=== PATIENT | female | born 1980 ===

== ENCOUNTER 2018-05-09 19:56 | Emergency (ER) | payer MEDICAID ==
[2018-05-09 20:48] LABS: URINE APPEARANCE CLEAR; URINE BILIRUBIN NEGATIVE (NEGATIVE); URINE BLOOD TRACE-I (NEGATIVE); URINE COLOR YELLOW; URINE GLUCOSE (UA) NEGATIVE (NEGATIVE); URINE KETONE NEGATIVE (NEGATIVE); URINE LEUKOCYTE ESTERASE NEGATIVE (NEGATIVE); URINE NITRITE NEGATIVE (NEGATIVE); URINE PROTEIN NEGATIVE (NEGATIVE); URINE UROBILINOGEN 0.2 E.U./dL (0.20 - 1.00)
[2018-05-09 20:57] LABS: URINE RBC 0 - 2 (NONE SEEN); URINE WBC NONE SEEN (0-2/hpf)
[2018-05-09] MEDS: 0.9 % SODIUM CHLORIDE 1,000 ML BAG IV ONE (21:25)
[2018-05-09 21:26] LABS: HCG,QUALITATIVE URINE NEGATIVE (NEGATIVE)
[2018-05-09 21:27] LABS: BASO % 0.1 % (0-6); EOS % 1.3 % (0-6); GRAN % 71.6 % (47-80); LYMPH % 22.4 % (16-45); MEAN CELL VOLUME 80.5 fl (81-97); MEAN CORPUSCULAR HEMOGLOBIN 26.8 pg (27-33); MEAN CORPUSCULAR HGB CONC 33.3 g/dl (32-36); MEAN PLATELET VOLUME 10.2 fl (7.4-10.4); MONO % 4.6 % (0-9); PLATELET COUNT 268 K/uL (130-400); RED BLOOD COUNT 4.47 M/uL (3.80-5.40); RED CELL DISTRIBUTION WIDTH 14.4 % (11.5-14.5); WHITE BLOOD COUNT W/O DIFF 8.7 K/uL (4.2-12.2)
[2018-05-09 21:36] LABS: BILIRUBIN,TOTAL < 0.20 mg/dL (0.2-1.0); BLOOD UREA NITROGEN 8 mg/dL (6-20); CREATININE 0.5 mg/dL (0.5-0.9); EST GLOMERULAR FILTRATION RATE > 60 mL/min
[2018-05-09 21:37] LABS: LIPASE 28 U/L (13-60); TOTAL PROTEIN 6.7 g/dL (6.6-8.7)
[2018-05-09 21:39] LABS: GLUCOSE,RANDOM 99 mg/dL (74-109)
[2018-05-09 21:41] LABS: ALT/SGPT 9 U/L (<33)
[2018-05-09 21:42] LABS: ALB/GLOB RATIO 1.4 (1.1-1.8); ALBUMIN 3.9 g/dL (4.0-5.0); ALKALINE PHOSPHATASE 88 U/L (35-104); AST/SGOT 10 U/L (10.0-35.0)
[2018-05-09] MEDS: ONDANSETRON HCL IV 4 MG/2 ML VIAL IVP ONE (22:15)
[2018-05-10] MEDS: KETOROLAC 30 MG/ML VIAL IVP ONE (00:01)
--- NOTE | 2018-05-10 00:17 | Emergency Department Record ---
History of Present Illness - General Chief Complaint: Abdominal Pain Stated Complaint: LT SIDE PAIN/NAUSEA Time Seen by Provider: 05/09/18 20:56 Source: Patient Mode of Arrival: Ambulatory Limitations: No limitations - History of Present Illness Initial Comments: pt c/o llq ap since yesterday w bloating and diarrhea and nausea MD Complaint: Abdominal pain Onset/Timin -: Days(s) Location: LUQ Radiation: Back, LLQ Severity scale (1-10): 6 Quality: Cramping Consistency: Constant Improves With: Nothing Worsens With: Nothing Associated Symptoms: Nausea - Related Data LMP (females 10-50): 3 weeks ago Patient : No Home Medications Medication Instructions Recorded Confirmed Last Taken No Home Med [NO HOME MEDS] 05/09/18 05/09/18 Unknown Allergies Allergy/AdvReac Type Severity Reaction Status Date / Time codeine Allergy HYPERSENSIT Verified 12/30/15 12:22 IVITY morphine Allergy HYPERSENSIT Verified 12/30/15 12:22 IVITY Penicillins Allergy RASH Verified 12/30/15 12:22 Travel Screening - Travel/Exposure Within Last 30 Days Have you traveled within the last 30 days?: No - Travel Symptoms Symptom Screening: None Review of Systems Reviewed: No additional complaints except as noted below Constitutional: Reports: As per HPI. Denies: Chills, Fever, Malaise, Night sweats, Weakness, Weight change Eyes: Reports: As per HPI. Denies: Eye discharge, Eye pain, Photophobia, Vision change ENT: Reports: As per HPI. Denies: Congestion, Dental pain, Ear pain, Epistaxis , Hearing loss, Throat pain Respiratory: Reports: As per HPI. Denies: Cough, Dyspnea, Hemoptysis, Stridor, Wheezes Cardiovascular: Reports: As per HPI. Denies: Arrhythmia, Chest pain, Dyspnea on exertion, Edema, Murmurs, Orthopnea, Palpitations, Paroxysmal nocturnal dyspnea, Rheumatic Fever, Syncope Endocrine: Reports: As per HPI. Denies: Fatigue, Heat or cold intolerance, Polydipsia, Polyuria Gastrointestinal: Reports: As per HPI, Nausea. Denies: Abdominal pain, Constipation, Diarrhea, Hematemesis, Hematochezia, Melena, Vomiting Genitourinary: Reports: As per HPI. Denies: Abnormal menses, Discharge, Dyspareunia, Dysuria, Frequency, Hematuria, Incontinence, Retention, Urgency Musculoskeletal: Reports: As per HPI. Denies: Arthralgia, Back pain, Gout, Joint swelling, Myalgia, Neck pain Skin: Reports: As per HPI. Denies: Bruising, Change in color, Change in hair/ nails, Lesions, Pruritus, Rash Neurological: Reports: As per HPI. Denies: Abnormal gait, Confusion, Headache, Numbness, Paresthesias, Seizure, Tingling, Tremors, Vertigo, Weakness Psychiatric: Reports: As per HPI. Denies: Anxiety, Auditory hallucinations, Depression, Homicidal thoughts, Suicidal thoughts, Visual hallucinations Hematological/Lymphatic: Reports: As per HPI. Denies: Anemia, Blood Clots, Easy bleeding, Easy bruising, Swollen glands Past Medical History - SOCIAL HISTORY Smoking Status: Current every day smoker - RESPIRATORY Hx Respiratory Disorders: No - CARDIOVASCULAR Hx Cardio Disorders: No - NEURO Hx Neuro Disorders: Yes Hx Dizziness: Yes - GI Hx GI Disorders: No - Hx Genitourinary Disorders: Yes Comment:: ovarian cyst - ENDOCRINE Hx Endocrine Disorders: No - MUSCULOSKELETAL Hx Musculoskeletal Disorders: No - PSYCH Hx Psych Problems: Yes Hx Anxiety: Yes - HEMATOLOGY/ONCOLOGY Hx Hematology/Oncology Disorders: Yes Hx Anemia: Yes Family Medical History Any Significant Family History?: Yes Hx Cancer: Grandparents Hx Diabetes: Brother/Sister, Grandparents Hx Heart Disease: Mother, Brother/Sister, Grandparents Physical Exam - General General Appearance: Alert, Oriented x3, Cooperative, Mild distress - Head Head exam: Normal inspection - Eye Eye exam: Normal appearance, PERRL, EOMI Pupils: Normal accommodation - ENT ENT exam: Normal exam, Mucous membranes moist, Normal external ear exam, Normal orophraynx Ear exam: Normal external inspection. negative: External canal tenderness Nasal Exam: Normal inspection. negative: Discharge, Sinus tenderness Mouth exam: Normal external inspection, Tongue normal Teeth exam: Normal inspection. negative: Dental caries Throat exam: Normal inspection. negative: Tonsillar erythema, Tonsillar exudate - Neck Neck exam: Normal inspection, Full ROM. negative: Tenderness - Respiratory Respiratory exam: Normal lung sounds bilaterally. negative: Respiratory distress - Cardiovascular Cardiovascular Exam: Regular rate, Normal rhythm, Normal heart sounds - GI/Abdominal GI/Abdominal exam: Soft, Normal bowel sounds, Tenderness - Rectal Rectal exam: Deferred - exam: Deferred - Extremities Extremities exam: Normal inspection, Full ROM, Normal capillary refill. negative: Tenderness - Back Back exam: Reports: Normal inspection, Full ROM. Denies: Muscle spasm, Rash noted, Tenderness - Neurological Neurological exam: Alert, CN II-XII intact, Normal gait, Oriented X3 - Psychiatric Psychiatric exam: Normal affect, Normal mood - Skin Skin exam: Dry, Intact, Normal color, Warm Course Vital Signs 05/09/18 05/09/18 05/10/18 20:40 22:33 00:06 Temperature 98.4 F Pulse Rate [ 74 67 62 Pulse Ox Probe] Respiratory 24 20 14 Rate Blood Pressure 115/65 102/66 115/80 [Left Arm] Pulse Ox 98 99 98 - Reevaluation(s) Reevaluation #1: 05/10/18 00:15 ct shows 2 ovarian cysts on l ovary. they are recommending ultrasound. pt is going to come back in the am for us. pt does not want any narcotics but accepted toradol Medical Decision Making - Lab Data Result diagrams: 05/09/18 21:20 05/09/18 21:20 Lab Results 05/09/18 05/09/18 05/09/18 Range/Units 20:45 21:20 21:20 WBC 8.7 (4.2-12.2) K/uL RBC 4.47 (3.80-5.40) M/uL Hgb 12.0 (11.6-16.0) gm/dl Hct 36.0 (35.0-47.0) % MCV 80.5 L (81-97) fl MCH 26.8 L (27-33) pg MCHC 33.3 (32-36) g/dl RDW 14.4 (11.5-14.5) % Plt Count 268 (130-400) K/uL MPV 10.2 (7.4-10.4) fl Gran % 71.6 (47-80) % Lymphocytes % 22.4 (16-45) % Monocytes % 4.6 (0-9) % Eosinophils % 1.3 (0-6) % Basophils % 0.1 (0-6) % Sodium 138 (136-145) mmol/L Potassium 3.6 (3.4-4.5) mmol/L Chloride 103 (98-107) mmol/L Carbon Dioxide 25.0 (22-29) mmol/L Anion Gap 10.0 (7-16) BUN 8 (6-20) mg/dL Creatinine 0.5 (0.5-0.9) mg/dL Estimated GFR > 60 mL/min Random Glucose 99 (74-109) mg/dL Calcium 8.3 L (8.6-10.0) mg/dL Total Bilirubin < 0.20 L (0.2-1.0) mg/dL AST 10 (10.0-35.0) U/L ALT 9 (<33) U/L Alkaline Phosphatase 88 (35-104) U/L Total Protein 6.7 (6.6-8.7) g/dL Albumin 3.9 L (4.0-5.0) g/dL Globulin 2.8 (1.4-4.8) gm/dL Albumin/Globulin Ratio 1.4 (1.1-1.8) Lipase 28 (13-60) U/L Urine Color Yellow Urine Appearance Clear Urine pH 6.0 (5.0-8.0) Ur Specific Roy 1.015 (1.002-1.030) Urine Protein Negative (NEGATIVE) Urine Glucose (UA) Negative (NEGATIVE) Urine Ketones Negative (NEGATIVE) Urine Blood Trace-i (NEGATIVE) Urine Nitrite Negative (NEGATIVE) Urine Bilirubin Negative (NEGATIVE) Urine Urobilinogen 0.2 (0.20 - 1.00) E.U./dL Ur Leukocyte Esterase Negative (NEGATIVE) Urine RBC 0 - 2 (NONE SEEN) Urine WBC None seen (0-2/hpf) Ur Epithelial Cells 10 - 15 (FEW) Urine HCG, Qual Negative (NEGATIVE) Disposition Disposition: Discharge Clinical Impression: Ovarian cyst Qualifiers: Laterality: left Qualified Code(s): N83.202 - Unspecified ovarian cyst, left side Disposition: Home, Self-Care Condition: (1) Good Instructions: Ovarian Cyst (ED) Additional Instructions: return this morning for ultrasound of l ovary. return sooner if worse. Quality - Quality Measures Quality Measures: N/A - Blood Pressure Screening Does Patient Have Any of the Following: No Blood Pressure Classification: Pre-Hypertensive BP Reading Systolic Measurement: 115 Diastolic Measurement: 80 Screening for High Blood Pressure: < Pre-Hypertensive BP, F/U Documented > [ G8950] Pre-Hypertensive Follow-up Interventions: Follow-up with rescreen every year.
--- NOTE | 2018-05-12 13:53 | CT SCAN REPORT ---
EXAM: CT OF THE ABDOMEN AND PELVIS WITHOUT CONTRAST HISTORY: LEFT ABDOMINAL PAIN AND DIARRHEA. TECHNIQUE: Standard CT imaging of the abdomen and pelvis without contrast was obtained. Comparison: None. FINDINGS: The lung bases are clear. The liver is unremarkable. The gallbladder has been resected. The common bile duct is not dilated. No peripancreatic fat stranding. The spleen is normal in size. The adrenal glands are normal. No nephrolithiasis or hydronephrosis. No calcification along the course of the ureters. There is a 4.1 cm lesion in the left ovary with an additional 2.8 cm cyst. The bladder is unremarkable. No bowel dilatation. Moderate stool throughout the colon. No pericolonic inflammation. The appendix is normal. No retroperitoneal or mesenteric adenopathy. The aorta is normal in caliber. Retroaortic left renal vein. No free fluid or free air. No destructive osseous lesion is identified. IMPRESSION: ENLARGEMENT OF THE LEFT OVARY WITH TWO SUSPECTED CYSTIC LESIONS MEASURING UP TO 4.1 CM. PELVIC ULTRASOUND IS RECOMMENDED FOR FURTHER EVALUATION. OTHERWISE, NEGATIVE NONCONTRAST CT. JOB NUMBER: [id number] [facility]
== END 2018-05-10 00:34 | disposition home or self-care (01) ==
LOC: ER 19:56
DX: N83.202 Unspecified ovarian cyst, left side (principal); R19.7 Diarrhea, unspecified; R11.0 Nausea; F17.210 Nicotine dependence, cigarettes, uncomplicated
CPT/HCPCS: 99284 ×2; 96374; 96375; 96361; 83690; 85025; 80053; 81001; 81025; 74176; J1885; J2405; J7030

== ENCOUNTER 2018-05-10 10:04 | Emergency (ER) | payer MEDICAID ==
--- NOTE | 2018-05-10 10:21 | Emergency Department Record ---
History of Present Illness - General Chief complaint: Recheck - Other Stated complaint: ULTRASOUND Time Seen by Provider: 05/10/18 10:14 Source: Patient Mode of Arrival: Ambulatory Limitations: No limitations - History of Present Illness Initial comments: 38 yo female presents with pelvic pain on the left. She was seen in ED yesterday evening. CT demonstrated a left ovarian cyst. She developed pain on Thursday. The pain is located in the left lower abdomen mostly. No vaginal bleeding or discharge. She has had a tubal ligation. No fevers or chills. test was negative last night. No pelvic examination was performed initial visit. MD Complaint: Pelvic pain Location: LLQ Radiation: Other Severity: Moderate Quality: Aching, Stabbing Consistency: Constant (constant but pain fluctuates in intensity) Improves with: None Worsens with: None Patient : No Associated Symptoms: Abdominal pain - Related Data Previous Rx's Medication Instructions Recorded Metronidazole [Flagyl] 500 mg PO BID #14 tablet 05/10/18 Allergies Allergy/AdvReac Type Severity Reaction Status Date / Time codeine Allergy HYPERSENSIT Verified 05/10/18 10:26 IVITY morphine Allergy HYPERSENSIT Verified 05/10/18 10:26 IVITY Penicillins Allergy RASH Verified 05/10/18 10:26 Review of Systems Constitutional: Denies: Chills, Fever, Malaise, Weakness Eyes: Denies: Eye discharge ENT: Denies: Congestion, Throat pain Respiratory: Denies: Cough, Dyspnea Cardiovascular: Denies: Chest pain, Palpitations, Syncope Endocrine: Denies: Fatigue Gastrointestinal: Reports: Abdominal pain. Denies: Diarrhea, Nausea, Vomiting Genitourinary: Denies: Dyspareunia, Dysuria, Urgency Musculoskeletal: Denies: Arthralgia, Back pain, Joint swelling, Myalgia, Other Skin: Denies: Bruising, Change in color, Rash Neurological: Denies: Headache Psychiatric: Denies: Anxiety Hematological/Lymphatic: Denies: Blood Clots, Easy bleeding, Easy bruising, Swollen glands Past Medical History - SOCIAL HISTORY Smoking Status: Current every day smoker - RESPIRATORY Hx Respiratory Disorders: No - CARDIOVASCULAR Hx Cardio Disorders: No - NEURO Hx Neuro Disorders: Yes Hx Dizziness: Yes - GI Hx GI Disorders: No - Hx Genitourinary Disorders: Yes Comment:: ovarian cyst - ENDOCRINE Hx Endocrine Disorders: No - MUSCULOSKELETAL Hx Musculoskeletal Disorders: No - PSYCH Hx Psych Problems: Yes Hx Anxiety: Yes - HEMATOLOGY/ONCOLOGY Hx Hematology/Oncology Disorders: Yes Hx Anemia: Yes Physical Exam - General General Appearance: Alert, Oriented x3, Cooperative, No acute distress Limitations: No limitations - Head Head exam: Atraumatic, Normal inspection - Eye Eye exam: Normal appearance - ENT ENT exam: Normal exam Ear exam: Normal external inspection Nasal Exam: Normal inspection Mouth exam: Normal external inspection - Neck Neck exam: Normal inspection - GI/Abdominal GI/Abdominal exam: Soft, Tenderness (mild tenderness LLQ but soft). negative: Distended, Guarding - Back Back exam: Denies: CVA tenderness (R), CVA tenderness (L) - Neurological Neurological exam: Alert, Oriented X3 - Psychiatric Psychiatric exam: Normal affect, Normal mood - Skin Skin exam: Dry, Intact, Normal color, Warm Course - Reevaluation(s) Reevaluation #1: Clue cells present on the wet prep Flagyl ordered and prescribed 05/10/18 11:43 05/10/18 12:44 The US was reviewed. Two left ovarian cystic structures 4cm and 2cm. Flow noted to both ovaries. Thickened endometrium. The patient was given the results. I placed a referral to a [facility]. She is to call her PCP as well for follow up of the pelvic US findings next available appointment. Disposition Disposition: Discharge Clinical Impression: Bacterial vaginosis Ovarian cyst Qualifiers: Laterality: left Qualified Code(s): N83.202 - Unspecified ovarian cyst, left side Disposition: Home, Self-Care Condition: (1) Good Instructions: Bacterial Vaginosis (ED), Ovarian Cyst (ED) Additional Instructions: Call your doctor for the next available follow up appointment Return to the ER for a recheck if worse, any new concerns or questions Take the prescriptions provided as directed Review this ER visit and the tests performed with your family doctor You have also been referred to a [facility] to follow up the ovarian cysts on the left and the thicken endometrium for further testing Prescriptions: Metronidazole [Flagyl] 500 mg PO BID #14 tablet Referrals: Fay Haywood D.O. [DOCTOR OF OSTEOPATH] - Forms: Patient Portal Access Time of Disposition: 12:46 Quality - Quality Measures Quality Measures: N/A - Blood Pressure Screening Does Patient Have Any of the Following: No Blood Pressure Classification: Normal BP Reading Systolic Measurement: 107 Diastolic Measurement: 47 Screening for High Blood Pressure: < Normal BP, F/U Not Required > [G3602]
[2018-05-10] MEDS: METRONIDAZOLE 250 MG TABLET PO ONE (12:10)
[2018-05-11 09:08] LABS: GC SPECIMEN TYPE Vaginal
== END 2018-05-10 13:04 | disposition home or self-care (01) ==
LOC: ER 10:04
DX: N76.0 Acute vaginitis (principal); N83.202 Unspecified ovarian cyst, left side; F17.210 Nicotine dependence, cigarettes, uncomplicated
CPT/HCPCS: 99284 ×2; 76856; 76830; Q0111; 87210

== ENCOUNTER 2018-05-12 16:17 | Emergency (ER) | payer MEDICAID ==
[2018-05-12] MEDS ORDERED: 0.9 % SODIUM CHLORIDE 1000ML 1,000 ML IV PRN (16:50)
--- NOTE | 2018-05-12 17:16 | Emergency Department Record ---
History of Present Illness - General Chief Complaint: Abdominal Pain Stated Complaint: LT SIDE PAIN,NOT FELLING HERSELF,NAUSEA Time Seen by Provider: 05/12/18 16:42 Source: RN notes reviewed Mode of Arrival: Ambulatory - History of Present Illness Initial Comments: pateint stated worsening left lower quad pain and was seen here three days ago and had a CT of abd with left ovarian cyst and she returned the next day for an US 2 days ago and she had two left ovarian cyst one 4 cm adn 2 cm and pelvic exam revealed clue cells and she was placed on flagyl 2 days ago for bacterial vaginosis. That is making her feel goofy. Onset/Timin -: Days(s) Location: LLQ Severity: Moderate Severity scale (1-10): 5 Consistency: Constant Improves With: Nothing Worsens With: Nothing - Related Data LMP (females 10-50): Last week Patient : No Previous Rx's Medication Instructions Recorded Metronidazole [Flagyl] 500 mg PO BID #14 tablet 05/10/18 Metronidazole [Metrogel-Vaginal] 1 applic VG DAILY #5 gel.w.appl 05/12/18 Allergies Allergy/AdvReac Type Severity Reaction Status Date / Time codeine Allergy HYPERSENSIT Verified 05/10/18 10:26 IVITY morphine Allergy HYPERSENSIT Verified 05/10/18 10:26 IVITY Penicillins Allergy RASH Verified 05/10/18 10:26 Travel Screening - Travel/Exposure Within Last 30 Days Have you traveled within the last 30 days?: No - Travel/Exposure Within Last Year Have you traveled outside the [place] in the last year?: No - Additonal Travel Details Have you been exposed to anyone with a communicable illness?: No - Travel Symptoms Symptom Screening: None Review of Systems Reviewed: No additional complaints except as noted below Constitutional: Reports: As per HPI. Denies: Chills, Fever, Malaise, Night sweats, Weakness, Weight change Eyes: Reports: As per HPI. Denies: Eye discharge, Eye pain, Photophobia, Vision change ENT: Reports: As per HPI. Denies: Congestion, Dental pain, Ear pain, Epistaxis , Hearing loss, Throat pain Respiratory: Reports: As per HPI. Denies: Cough, Dyspnea, Hemoptysis, Stridor, Wheezes Cardiovascular: Reports: As per HPI. Denies: Arrhythmia, Chest pain, Dyspnea on exertion, Edema, Murmurs, Orthopnea, Palpitations, Paroxysmal nocturnal dyspnea, Rheumatic Fever, Syncope Endocrine: Reports: As per HPI. Denies: Fatigue, Heat or cold intolerance, Polydipsia, Polyuria Gastrointestinal: Reports: As per HPI, Abdominal pain (lrft lower quad). Denies : Constipation, Diarrhea, Hematemesis, Hematochezia, Melena, Nausea, Vomiting Genitourinary: Reports: As per HPI. Denies: Abnormal menses, Discharge, Dyspareunia, Dysuria, Frequency, Hematuria, Incontinence, Retention, Urgency Musculoskeletal: Reports: As per HPI. Denies: Arthralgia, Back pain, Gout, Joint swelling, Myalgia, Neck pain Skin: Reports: As per HPI. Denies: Bruising, Change in color, Change in hair/ nails, Lesions, Pruritus, Rash Neurological: Reports: As per HPI. Denies: Abnormal gait, Confusion, Headache, Numbness, Paresthesias, Seizure, Tingling, Tremors, Vertigo, Weakness Psychiatric: Reports: As per HPI. Denies: Anxiety, Auditory hallucinations, Depression, Homicidal thoughts, Suicidal thoughts, Visual hallucinations Hematological/Lymphatic: Reports: As per HPI. Denies: Anemia, Blood Clots, Easy bleeding, Easy bruising, Swollen glands Past Medical History - SOCIAL HISTORY Smoking Status: Current every day smoker Alcohol Use: Occasional Drug Use: None - RESPIRATORY Hx Respiratory Disorders: No - CARDIOVASCULAR Hx Cardio Disorders: No - NEURO Hx Neuro Disorders: Yes Hx Dizziness: Yes - GI Hx GI Disorders: No - Hx Genitourinary Disorders: Yes Comment:: ovarian cyst - ENDOCRINE Hx Endocrine Disorders: No - MUSCULOSKELETAL Hx Musculoskeletal Disorders: No - PSYCH Hx Psych Problems: Yes Hx Anxiety: Yes - HEMATOLOGY/ONCOLOGY Hx Hematology/Oncology Disorders: Yes Hx Anemia: Yes Family Medical History Any Significant Family History?: Yes Hx Cancer: Grandparents Hx Diabetes: Brother/Sister, Grandparents Hx Heart Disease: Mother, Brother/Sister, Grandparents Physical Exam - General General Appearance: Alert, Oriented x3, Cooperative, No acute distress - Head Head exam: Normal inspection - Eye Eye exam: Normal appearance, PERRL Pupils: Normal accommodation - ENT ENT exam: Normal exam, Mucous membranes moist, Normal external ear exam, Normal orophraynx, TM's normal bilaterally Ear exam: Normal external inspection. negative: External canal tenderness Nasal Exam: Normal inspection. negative: Discharge, Sinus tenderness Mouth exam: Normal external inspection, Tongue normal Teeth exam: Normal inspection. negative: Dental caries Throat exam: Normal inspection. negative: Tonsillar erythema, Tonsillar exudate - Neck Neck exam: Normal inspection, Full ROM. negative: Tenderness - Respiratory Respiratory exam: Normal lung sounds bilaterally. negative: Respiratory distress - Cardiovascular Cardiovascular Exam: Regular rate, Normal rhythm, Normal heart sounds - GI/Abdominal GI/Abdominal exam: Soft, Normal bowel sounds, Tenderness (left lower quad pain) - Rectal Rectal exam: Deferred - exam: Deferred - Extremities Extremities exam: Normal inspection, Full ROM, Normal capillary refill. negative: Tenderness - Back Back exam: Reports: Normal inspection, Full ROM. Denies: Muscle spasm, Rash noted, Tenderness - Neurological Neurological exam: Alert, Normal gait, Oriented X3, Reflexes normal - Psychiatric Psychiatric exam: Normal affect, Normal mood - Skin Skin exam: Dry, Intact, Normal color, Warm Course Vital Signs 05/12/18 16:23 Temperature 98.2 F Pulse Rate 74 Respiratory 18 Rate Blood Pressure 117/75 Pulse Ox 100 - Reevaluation(s) Reevaluation #1: patient states flagy pills making her sick and will switch to metrogel daily time 5 05/12/18 18:59 Medical Decision Making - Lab Data Result diagrams: 05/12/18 17:20 05/12/18 17:20 Disposition Clinical Impression: Bacterial vaginosis Abdominal pain Qualifiers: Abdominal location: left lower quadrant Qualified Code(s): R10.32 - Left lower quadrant pain Ovarian cyst Qualifiers: Laterality: left Qualified Code(s): N83.202 - Unspecified ovarian cyst, left side Condition: (1) Good Instructions: Ovarian Cyst (ED), Bacterial Vaginosis (ED) Additional Instructions: follow up with her primary tomorrow stop flagyl pills and use metrogel vaginal cream use ibuprofin for pain Prescriptions: Metronidazole [Metrogel-Vaginal] 1 applic VG DAILY #5 gel.w.appl Forms: Patient Portal Access Time of Disposition: 19:02 Quality - Quality Measures Quality Measures: N/A - Blood Pressure Screening Does Patient Have Any of the Following: No Blood Pressure Classification: Normal BP Reading Systolic Measurement: 117 Diastolic Measurement: 75 Screening for High Blood Pressure: < Normal BP, F/U Not Required > [G7876]
[2018-05-12 17:31] LABS: BASO % 0.2 % (0-6); EOS % 1.2 % (0-6); GRAN % 75.6 % (47-80); HEMATOCRIT 39.1 % (35.0-47.0); HEMOGLOBIN 12.9 gm/dl (11.6-16.0); LYMPH % 18.1 % (16-45); MEAN CELL VOLUME 81.3 fl (81-97); MEAN CORPUSCULAR HEMOGLOBIN 26.8 pg (27-33); MEAN PLATELET VOLUME 10.5 fl (7.4-10.4); MONO % 4.9 % (0-9); PLATELET COUNT 272 K/uL (130-400); RED BLOOD COUNT 4.81 M/uL (3.80-5.40); RED CELL DISTRIBUTION WIDTH 14.6 % (11.5-14.5); WHITE BLOOD COUNT W/O DIFF 8.9 K/uL (4.2-12.2)
[2018-05-12 17:39] LABS: BLOOD UREA NITROGEN 10 mg/dL (6-20)
[2018-05-12 17:40] LABS: CREATININE 0.6 mg/dL (0.5-0.9); EST GLOMERULAR FILTRATION RATE > 60 mL/min
[2018-05-12 17:42] LABS: GLUCOSE,RANDOM 103 mg/dL (74-109)
[2018-05-12] MEDS ORDERED: KETOROLAC 30 MG/ML VIAL IVP ONE (18:49)
--- NOTE | 2018-05-13 09:36 | ULTRASOUND REPORT ---
EXAM: PELVIC ULTRASOUND, TRANSABDOMINAL AND TRANSVAGINAL COMPLETE WITH COMPLETE DUPLEX DOPPLER IMAGING HISTORY: PELVIC PAIN. TECHNIQUE: Transabdominal imaging of the pelvis was obtained. Transvaginal imaging was obtained for visualization of the uterus and ovaries. Duplex Doppler imaging was obtained to evaluate for ovarian torsion. Comparison: Pelvic ultrasound 05/10/[address] pelvis without contrast 05/09/18. FINDINGS: TRANSABDOMINAL PELVIC ULTRASOUND: UTERUS: Normal size, 10.5 cm in length and 5.8 cm diameter. The endometrium is 14 mm. The myometrium is unremarkable. OVARIES: The right ovary is not identified due to bowel gas. The left ovary contains cysts, better seen transvaginally. No free fluid in the pelvis. TRANSVAGINAL PELVIC ULTRASOUND: The uterus has a normal size. The endometrium is again mildly thickened, 16 mm. Two simple cysts in the left ovary measure 3.8 x 3.3 x 3.2 cm and 2.7 x 2.4 x 3 cm. The right ovary is not visualized due to bowel gas. The right ovary was seen to have normal size in the upper pelvis on previous CT scan. DUPLEX DOPPLER: Normal arterial and venous waveforms in the left ovary. No evidence of ovarian torsion. The right ovary is not visualized. IMPRESSION: 1. PERSISTENT LEFT OVARIAN CYSTS, LIKELY FUNCTIONAL. NO EVIDENCE OF LEFT OVARIAN TORSION. RECOMMEND FOLLOW-UP ULTRASOUND IN THREE TO SIX MONTHS. 2. THICKENED ENDOMETRIUM. THIS CAN ALSO BE FOLLOWED UP BY ULTRASOUND IF OBTAINED IN THREE TO SIX MONTHS IF OBTAINED IMMEDIATELY AFTER A MENSTRUAL CYCLE. 3. NO ACUTE ABNORMALITIES ARE IDENTIFIED. NO EVIDENCE OF LEFT OVARIAN TORSION. JOB NUMBER: [id number] [facility]
== END 2018-05-12 19:22 | disposition home or self-care (01) ==
LOC: ER 16:17
DX: N76.0 Acute vaginitis (principal); R10.32 Left lower quadrant pain; F17.210 Nicotine dependence, cigarettes, uncomplicated
CPT/HCPCS: 76830; 76856; 80048; 85025; 96374; 99284; J1885

== ENCOUNTER 2019-03-29 11:30 | Emergency (ER) | payer MEDICAID ==
[2019-03-29 11:56] LABS: URINE APPEARANCE CLEAR; URINE BILIRUBIN NEGATIVE (NEGATIVE); URINE BLOOD TRACE-LYSED (NEGATIVE); URINE COLOR YELLOW; URINE GLUCOSE (UA) NEGATIVE (NEGATIVE); URINE KETONE NEGATIVE (NEGATIVE); URINE PROTEIN NEGATIVE (NEGATIVE); URINE UROBILINOGEN 0.2 E.U./dL (0.20 - 1.00)
[2019-03-29 11:57] LABS: HCG,QUALITATIVE URINE NEGATIVE (NEGATIVE); URINE LEUKOCYTE ESTERASE TRACE (NEGATIVE); URINE NITRITE NEGATIVE (NEGATIVE)
[2019-03-29 11:58] LABS: URINE BACTERIA 1+; URINE EPITHELIAL CELLS 21 - 35 (FEW); URINE MUCUS LIGHT
[2019-03-29] MEDS ORDERED: 0.9 % SODIUM CHLORIDE 1,000 ML BAG IV ONE (12:03)
[2019-03-29] MEDS ORDERED: ONDANSETRON HCL IV 4 MG/2 ML VIAL IV ONE (12:03)
--- NOTE | 2019-03-29 12:05 | Emergency Department Record ---
History of Present Illness - General Chief complaint: Nausea, Vomiting, Diarrhea Stated complaint: NAUSEA,BLOATING Time Seen by Provider: 03/29/19 11:55 Source: Patient Mode of Arrival: Ambulatory - History of Present Illness Initial comments: The patient states that she has had 4 days of abdominal bloating and nausea without vomiting. Had a normal BM this morning. She admits that her bowels have given her problems on and off. She had a tubal ligation 14 years ago and has had her GB removed. She is sexually active with her LMP the first week of January (7 weeks ago). MD complaint: Abdominal pain (LUQ), Nausea Onset/Timin -: Days(s) Associated Abdominal Pain: Yes Location: LUQ, LLQ Radiation: None Severity: Moderate Severity scale (1-10): 7 Quality: Aching Consistency: Constant Improves with: None Worsens with: None Associated Symptoms: Nausea/vomiting - Related Data Previous Rx's Medication Instructions Recorded Nitrofurantoin Monohyd/M-Cryst 100 mg PO BID #10 capsule 03/29/19 [Macrobid 100 mg Capsule] Allergies Allergy/AdvReac Type Severity Reaction Status Date / Time codeine Allergy HYPERSENSIT Verified 05/10/18 10:26 IVITY morphine Allergy HYPERSENSIT Verified 05/10/18 10:26 IVITY Penicillins Allergy RASH Verified 05/10/18 10:26 Travel Screening - Travel/Exposure Within Last 30 Days Have you traveled within the last 30 days?: No Review of Systems Reviewed: No additional complaints except as noted below Constitutional: Reports: As per HPI. Denies: Chills, Fever, Malaise, Night sweats, Weakness, Weight change Eyes: Reports: As per HPI. Denies: Eye discharge, Eye pain, Photophobia, Vision change ENT: Reports: As per HPI. Denies: Congestion, Dental pain, Ear pain, Epistaxis, Hearing loss, Throat pain Respiratory: Reports: As per HPI. Denies: Cough, Dyspnea, Hemoptysis, Stridor, Wheezes Cardiovascular: Reports: As per HPI. Denies: Arrhythmia, Chest pain, Dyspnea on exertion, Edema, Murmurs, Orthopnea, Palpitations, Paroxysmal nocturnal dyspnea, Rheumatic Fever, Syncope Endocrine: Reports: As per HPI. Denies: Fatigue, Heat or cold intolerance, Atif ydipsia, Polyuria Gastrointestinal: Reports: As per HPI. Denies: Abdominal pain, Constipation, Diarrhea, Hematemesis, Hematochezia, Melena, Nausea, Vomiting Genitourinary: Reports: As per HPI. Denies: Abnormal menses, Discharge, Dyspareunia, Dysuria, Frequency, Hematuria, Incontinence, Retention, Urgency Musculoskeletal: Reports: As per HPI. Denies: Arthralgia, Back pain, Gout, Joint swelling, Myalgia, Neck pain Skin: Reports: As per HPI. Denies: Bruising, Change in color, Change in hair/nails, Lesions, Pruritus, Rash Neurological: Reports: As per HPI. Denies: Abnormal gait, Confusion, Headache, Numbness, Paresthesias, Seizure, Tingling, Tremors, Vertigo, Weakness Psychiatric: Reports: As per HPI. Denies: Anxiety, Auditory hallucinations, Depression, Homicidal thoughts, Suicidal thoughts, Visual hallucinations Hematological/Lymphatic: Reports: As per HPI. Denies: Anemia, Blood Clots, Easy bleeding, Easy bruising, Swollen glands Past Medical History - SOCIAL HISTORY Smoking Status: Current every day smoker - RESPIRATORY Hx Respiratory Disorders: No - CARDIOVASCULAR Hx Cardio Disorders: No - NEURO Hx Neuro Disorders: Yes Hx Dizziness: Yes - GI Hx GI Disorders: No - Hx Genitourinary Disorders: Yes Comment:: ovarian cyst - ENDOCRINE Hx Endocrine Disorders: No - MUSCULOSKELETAL Hx Musculoskeletal Disorders: No - PSYCH Hx Psych Problems: Yes Hx Anxiety: Yes - HEMATOLOGY/ONCOLOGY Hx Hematology/Oncology Disorders: Yes Hx Anemia: Yes Family Medical History Any Significant Family History?: Yes Hx Cancer: Grandparents Hx Diabetes: Brother/Sister, Grandparents Hx Heart Disease: Mother, Brother/Sister, Grandparents Physical Exam - General General Appearance: Alert, Oriented x3, Cooperative, Mild distress - Head Head exam: Normal inspection - Eye Eye exam: Normal appearance, PERRL, EOMI. negative: Conjunctival injection, Nystagmus Pupils: Normal accommodation - ENT ENT exam: Normal exam, Mucous membranes moist, Normal external ear exam, Normal orophraynx, TM's normal bilaterally Ear exam: Normal external inspection. negative: External canal tenderness Nasal Exam: Normal inspection. negative: Discharge, Sinus tenderness Mouth exam: Normal external inspection, Tongue normal Teeth exam: Normal inspection. negative: Dental caries Throat exam: Normal inspection. negative: Tonsillar erythema, Tonsillar exudate - Neck Neck exam: Normal inspection, Full ROM. negative: Lymphadenopathy, Meningismus, Tenderness - Respiratory Respiratory exam: Normal lung sounds bilaterally. negative: Respiratory distress - Cardiovascular Cardiovascular Exam: Regular rate, Normal rhythm, Normal heart sounds - GI/Abdominal GI/Abdominal exam: Normal bowel sounds, Tenderness (; abdominal 'distention' which is very soft ). negative: Guarding, Pulsatile mass, Rebound, Rigid - Rectal Rectal exam: Deferred - exam: Deferred - Extremities Extremities exam: Normal inspection, Full ROM, Normal capillary refill. negative: Calf tenderness, Pedal edema, Tenderness - Back Back exam: Reports: Normal inspection, Full ROM. Denies: CVA tenderness (R), CVA tenderness (L), Muscle spasm, Rash noted, Tenderness - Neurological Neurological exam: Alert, CN II-XII intact, Normal gait, Oriented X3, Reflexes normal. negative: Motor sensory deficit - Psychiatric Psychiatric exam: Normal affect, Normal mood - Skin Skin exam: Dry, Intact, Normal color, Warm. negative: Rash Course Vital Signs 03/29/19 11:35 Temperature 98.3 F Pulse Rate 70 Respiratory 20 Rate Blood Pressure 116/67 Pulse Ox 98 - Reevaluation(s) Reevaluation #1: 03/29/19 14:43 Patient gave us a contaminated urine. She states she is improved slightly since arrival. Repeat abdominal exam shows less distention, softer, and only minimally tender on palpation. Patient will give us a clean urine specimen and I will obtain an abdominal xray. Reevaluation #2: 03/29/19 15:54 Patient's results discussed, all questions answered, patient states she frequently has constipation and bowel problems. She is requesting something to regulate them. Medical Decision Making - Management Options MDM Management: No Additional Work-up Planned - Data Complexity MDM Data: Labs Ordered and/or Reviewed, X-Ray Ordered and/or Reviewed (Moderate amount of stool in the colon) - Lab Data Result diagrams: 03/29/19 12:22 03/29/19 12:25 Disposition Disposition: Discharge Clinical Impression: Constipation Qualifiers: Constipation type: unspecified constipation type Qualified Code(s): K59.00 - Constipation, unspecified UTI (urinary tract infection) Qualifiers: Urinary tract infection type: acute cystitis Hematuria presence: without hematuria Qualified Code(s): N30.00 - Acute cystitis without hematuria Abdominal pain Qualifiers: Abdominal location: left upper quadrant Qualified Code(s): R10.12 - Left upper quadrant pain Disposition: Home, Self-Care Condition: (1) Good Instructions: Constipation (ED), High Fiber Diet (ED), Urinary Tract Infection in Women (ED) Additional Instructions: Take macrobid as directed until gone. Increase fluids. Miralax as directed over the counter for constipation. PCP follow up this week if abdominal pain persists. Prescriptions: Nitrofurantoin Monohyd/M-Cryst [Macrobid 100 mg Capsule] 100 mg PO BID #10 ca psule Quality - Quality Measures Quality Measures: N/A - Blood Pressure Screening Does Patient Have Any of the Following: No Blood Pressure Classification: Normal BP Reading Systolic Measurement: 116 Diastolic Measurement: 67 Screening for High Blood Pressure: < Normal BP, F/U Not Required > [G8783]
[2019-03-29 12:51] LABS: BLOOD UREA NITROGEN 10 mg/dL (6-20)
[2019-03-29 12:52] LABS: CREATININE 0.6 mg/dL (0.5-0.9); EST GLOMERULAR FILTRATION RATE > 60 mL/min; LIPASE 33 U/L (13-60)
[2019-03-29 12:54] LABS: GLUCOSE,RANDOM 97 mg/dL (74-109)
[2019-03-29 12:57] LABS: ALB/GLOB RATIO 1.3 (1.1-1.8); ALKALINE PHOSPHATASE 84 U/L (35-104); ALT/SGPT 8 U/L (<33); AST/SGOT 11 U/L (10.0-35.0)
[2019-03-29 14:34] LABS: ABSOLUTE NEUTROPHIL COUNT 4.85; BASO % 0.3 % (0-6); EOS % 1.3 % (0-6); GRAN % 69.7 % (47-80); HEMATOCRIT 37.2 % (35.0-47.0); HEMOGLOBIN 11.5 gm/dl (11.6-16.0); LYMPH % 22.8 % (16-45); MEAN CORPUSCULAR HEMOGLOBIN 24.4 pg (27-33); MEAN CORPUSCULAR HGB CONC 30.9 g/dl (32-36); MEAN PLATELET VOLUME 10.9 fl (7.4-10.4); MONO % 5.9 % (0-9); PLATELET COUNT 304 K/uL (130-400); RED BLOOD COUNT 4.71 M/uL (3.80-5.40); RED CELL DISTRIBUTION WIDTH 15.4 % (11.5-14.5)
[2019-03-29 15:13] LABS: URINE APPEARANCE CLEAR; URINE BILIRUBIN NEGATIVE (NEGATIVE); URINE COLOR YELLOW; URINE GLUCOSE (UA) NEGATIVE (NEGATIVE); URINE KETONE 40 mg/dL (NEGATIVE)
[2019-03-29 15:14] LABS: URINE BLOOD TRACE-NONHEMOLYZED (NEGATIVE); URINE LEUKOCYTE ESTERASE SMALL (NEGATIVE); URINE NITRITE NEGATIVE (NEGATIVE); URINE PROTEIN NEGATIVE (NEGATIVE); URINE UROBILINOGEN 0.2 E.U./dL (0.20 - 1.00)
[2019-03-29 15:16] LABS: URINE RBC 0 - 2 (NONE SEEN); URINE WBC 0 - 2 (0-2/hpf)
[2019-03-29 15:17] LABS: URINE BACTERIA FEW; URINE EPITHELIAL CELLS 0 - 2 (FEW)
--- NOTE | 2019-03-29 15:32 | RADIOLOGY REPORT ---
EXAMINATION: Abdomen Complete EXAM DATE: 03/29/2019 3:13 PM TECHNIQUE: Abdomen two views INDICATION: abdominal pain started this am FINDINGS: Views of the abdomen show no abnormality of intestinal gas pattern. No free intraperitone al air is seen. There is a moderate amount of stool in the colon. IMPRESSION: Normal abdomen. Dictated by: John Padilla MD on 03/29/2019 3:28 PM. .
== END 2019-03-29 16:34 | disposition home or self-care (01) ==
LOC: ER 11:30
DX: N30.00 Acute cystitis without hematuria (principal); R11.2 Nausea with vomiting, unspecified; R19.7 Diarrhea, unspecified; K59.00 Constipation, unspecified; R10.84 Generalized abdominal pain; F17.210 Nicotine dependence, cigarettes, uncomplicated
CPT/HCPCS: 74019; 80053; 81001; 81025; 83690; 85025; 99284; J2405; J7030